=== PATIENT | female | born 1965 | race Caucasian/White ===

== ENCOUNTER → 2017-02-26 11:59 | Emergency (ER) | payer BC, OTHER ==
[~2017-02-26 11:59] MED LIST: Diazepam TAB(*) 2 MG PO ONE; Meclizine TAB* 12.5 MG PO ONE
[2017-02-26 13:08] LABS: Hematocrit 37 % (35-47); Hemoglobin 12.7 g/dl (12.0-16.0); Mean Corpuscular HGB Conc 34 g/dl (31-36); Mean Corpuscular Hemoglobin 32 pg (27-31); Mean Corpuscular Volume 93 fL (80-97); Mean Platelet Volume 8 um3 (7.4-10.4); Red Blood Count 4.03 10^6/ul (4.0-5.4); Red Cell Distribution Width 13 % (10.5-15); White Blood Count 7.8 10^3/ul (3.5-10.8)
[2017-02-26 13:23] LABS: Albumin 4.3 g/dL (3.2-5.2); BUN/Creatinine Ratio 12.5 (8-20); C Reactive Protein 5.81 mg/L (< 5.00); Calcium 9.6 mg/dL (8.6-10.3); EGFR African American 87.5 (>60); Magnesium 2.3 mg/dL (1.9-2.7); Potassium 4.2 mmol/L (3.5-5.0); Total Bilirubin 0.3 mg/dL (0.2-1.0); Total Protein 7.3 g/dL (6.4-8.9)
--- NOTE | 2017-02-26 13:28 | RAD ---
HISTORY: Dizziness COMPARISONS: None VIEWS: 2: Frontal and lateral views of the chest. FINDINGS: CARDIOMEDIASTINAL SILHOUETTE: The cardiomediastinal silhouette is normal. EDVIN: The edvin are normal. PLEURA: The costophrenic angles are sharp. No pleural abnormalities are noted. LUNG PARENCHYMA: The lungs are clear. ABDOMEN: The upper abdomen is clear. There is no subphrenic gas. BONES AND SOFT TISSUES: No bone or soft tissue abnormalities are noted. OTHER: None. IMPRESSION: NO ACTIVE CARDIOPULMONARY DISEASE.
[2017-02-26 13:55] LABS: TSH (Thyroid Stimulating Horm) 1.22 mcIU/mL (0.34-5.60)
--- NOTE | 2017-02-26 15:07 | ED ---
Jose Gauthier Benjamin, scribed for Dylan Alvarez MD on 02/26/17 at 1226 . Dizziness - HPI Summary HPI Summary: 51yo female c/o room spinning like dizziness since last week. Last Saturday, pt woke up dizzy and had left arm numbness, CP and neck pain. She also felt near-syncopal but denies LOC. Last Saturday, pt saw her PCP for her symptoms and had blood drawn and an EKG done. Pt was told that her sinus were red and swollen. Pt started steroids and anti-histamine subsequently, which helped initially but pt started feeling dizzy and near syncopal again since Saturday. Pt states that head movement and [id number] position changes triggers her dizziness. Denies CP, SOB, or nasuea. Pt also noted higher BP last week. Baseline BP for her is in 120s/80s. Pt states BP was in 160s/90s last week. Pt is an occasional drinker and a regular vape smoker. FHx of HTN, CAD, and CVA. - History Of Current Complaint Chief Complaint: EDSyncope Stated Complaint: NEAR SYNCOPE Time Seen by Provider: 02/26/17 12:03 Hx Obtained From: Patient, Family/Ring Sewer - friend Onset/Duration: Still Present Timing: Intermittent Episode Lasting Severity Initially: Moderate Severity Currently: Moderate Character: Room Spinning, Dizzy Aggravating Factor(s): Position Change, Change In Head Position Alleviating Factor(s): Rest, Lying Down Associated Signs And Symptoms: Negative: Nausea, SOB, Palpitations - Allergies/Home Medications Allergies/Adverse Reactions: Allergies Allergy/AdvReac Type Severity Reaction Status Date / Time Azithromycin Allergy Severe throat Verified 08/16/16 08:18 swelling Codeine Allergy Severe vomiting, Verified 03/04/15 09:18 headache PMH/Surg Hx/FS Hx/Imm Hx Endocrine/Hematology History: Reports: Hx Diabetes - resolved gestational 22 yrs ago Cardiovascular History: Denies: Hx Hypertension, Hx Pacemaker/ICD History: Denies: Hx Dialysis, Hx Renal Disease Sensory History: Denies: Hx Hearing Aid Psychiatric History: Denies: Hx Panic Disorder - Surgical History Surgery Procedure, Year, and Place: Uterine ablasion. tubal ligation. 2 lump removal from breast- begign. knee surgery left. hysterectomy Infectious Disease History: No Infectious Disease History: Denies: Traveled Outside the [place] in Last 30 Days - Social History Alcohol Use: Occasionally Substance Use Type: Reports: None Smoking Status (MU): Heavy Every Day Tobacco Smoker Amount Used/How Often: 1/2 PPD Review of Systems Constitutional: Negative Eyes: Negative ENT: Negative Cardiovascular: Negative Negative: Chest Pain Positive: Cough. Negative: Shortness Of Breath Gastrointestinal: Negative Negative: Nausea Genitourinary: Negative Musculoskeletal: Negative Skin: Negative Neurological: Other - dizziness Positive: Syncope - near syncopal Psychological: Normal All Other Systems Reviewed And Are Negative: Yes Physical Exam - Summary Physical Exam Summary: VITAL SIGNS: Reviewed. GENERAL: Patient is a well-developed and nourished female who is lying comfortable in the stretcher. Patient is not in any acute respiratory distress. HEAD AND FACE: No signs of trauma. No ecchymosis, hematomas or skull depressions. No sinus tenderness. EYES: PERRLA, EOMI x 2, No injected conjunctiva, no nystagmus. EARS: Hearing grossly intact. Ear canals and tympanic membranes are within normal limits. MOUTH: Oropharynx within normal limits. NECK: Supple, trachea is midline, no adenopathy, no JVD, no carotid bruit, no c- spine tenderness, neck with full ROM. CHEST: Symmetric, no tenderness at palpation LUNGS: Clear to auscultation bilaterally. No wheezing or crackles. CVS: Regular rate and rhythm, S1 and S2 present, no murmurs or gallops appreciated. ABDOMEN: Soft, non-tender. No signs of distention. No rebound no guarding, and no masses palpated. Bowel sounds are normal. EXTREMITIES: FROM in all major joints, no edema, no cyanosis or clubbing. NEURO: Alert and oriented x 3. No acute neurological deficits. Speech is normal and follows commands. SKIN: Dry and warm Triage Information Reviewed: Yes Vital Signs On Initial Exam: Initial Vitals Temp Pulse Resp BP Pulse Ox 98.4 F 60 11 127/80 97 02/26/17 12:04 02/26/17 12:04 02/26/17 12:04 02/26/17 12:04 02/26/17 12:04 Vital Signs Reviewed: Yes - [place] Coma Scale Coma Scale Total: 15 Diagnostics - Vital Signs Vital Signs Temp Pulse Resp BP Pulse Ox 02/26/17 12:04 98.4 F 60 11 127/80 97 - Laboratory Lab Results: Lab Results 02/26/17 02/26/17 02/26/17 Range/Units 12:50 12:50 12:50 WBC 7.8 (3.5-10.8) 10^3/ul RBC 4.03 (4.0-5.4) 10^6/ul Hgb 12.7 (12.0-16.0) g/dl Hct 37 (35-47) % MCV 93 (80-97) fL MCH 32 H (27-31) pg MCHC 34 (31-36) g/dl RDW 13 (10.5-15) % Plt Count 354 (150-450) 10^3/ul MPV 8 (7.4-10.4) um3 Neut % (Auto) 55.7 (38-83) % Lymph % (Auto) 34.3 (25-47) % [place] % (Auto) 7.5 (1-9) % Eos % (Auto) 1.9 (0-6) % Baso % (Auto) 0.6 (0-2) % Absolute Neuts (auto) 4.3 (1.5-7.7) 10^3/ul Absolute Lymphs (auto) 2.7 (1.0-4.8) 10^3/ul Absolute Monos (auto) 0.6 (0-0.8) 10^3/ul Absolute Eos (auto) 0.1 (0-0.6) 10^3/ul Absolute Basos (auto) 0 (0-0.2) 10^3/ul Absolute Nucleated RBC 0 10^3/ul Nucleated RBC % 0 Sodium 137 (133-145) mmol/L Potassium 4.2 (3.5-5.0) mmol/L Chloride 104 (101-111) mmol/L Carbon Dioxide 27 (22-32) mmol/L Anion Gap 6 (2-11) mmol/L BUN 11 (6-24) mg/dL Creatinine 0.88 (0.51-0.95) mg/dL Est GFR ( Amer) 87.5 (>60) Est GFR (Non-Af Amer) 68.0 (>60) BUN/Creatinine Ratio 12.5 (8-20) Glucose 100 (70-100) mg/dL Calcium 9.6 (8.6-10.3) mg/dL Magnesium 2.3 (1.9-2.7) mg/dL Total Bilirubin 0.30 (0.2-1.0) mg/dL AST 25 (13-39) U/L ALT 42 (7-52) U/L Alkaline Phosphatase 89 (34-104) U/L Total Creatine Kinase 66 (10-223) U/L Troponin I 0.00 (<0.04) ng/mL C-Reactive Protein 5.81 H (< 5.00) mg/L B-Natriuretic Peptide 19 ( - 100) pg/mL Total Protein 7.3 (6.4-8.9) g/dL Albumin 4.3 (3.2-5.2) g/dL Globulin 3.0 (2-4) g/dL Albumin/Globulin Ratio 1.4 (1-3) TSH 1.22 (0.34-5.60) mcIU/mL Result Diagrams: 02/26/17 12:50 02/26/17 12:50 Lab Statement: Any lab studies that have been ordered have been reviewed, and results considered in the medical decision making process. - Radiology CXR Xray Interpretation: No Acute Changes Radiology Interpretation Completed By: Radiologist - ED physician has reviewed this radiology report and agrees. Re-Evaluation - Re-Evaluation First Eval Re-Evaluation Time: 14:39 Comment: Reviewed labs and imaging results with the pt. Dizzy Course/Dx - Course Assessment/Plan: In the ED course an IV access was obtained. Patient was placed in a cardiac cath technician. Patient was started with IV fluids. She was given Antivert for Dizziness. Labs without any significant abnormality. Troponin #1 : 0.00. EKG shows a NSR w/o ST elevations. CXR impression: No acute pathology. After medications patients symptoms have improved. At this point I discussed all the findings and test results with the patient and patients parents. They were instructed to return to the emergency room immediately if any of the symptoms return or worsens. They understand and agree. Neurological exam before discharge: Patient is alert and oriented x 3. No acute neurological deficits. Patient vital signs are stable. Patient is to follow up with the roll mill operator in the next 2 3 days. They understand and agree. Plan of care was discussed with the patient and patient understands and agrees with the plan of care. All questions were answered at patient satisfaction. There were no further complaints or concerns. - Diagnoses Differential Diagnosis/HQI/PQRI: Anxiety, Benign Paroxysmal Positional Vertigo, Dysrhythmia, Labyrinthitis, Meniere's Disease, Vasovagal Reaction Provider Diagnoses: Vertigo Discharge - Discharge Plan Condition: Stable Disposition: HOME Prescriptions: Meclizine TAB* [Antivert 12.5 TAB*] 25 mg PO TID PRN #30 tab PRN Reason: Vertigo Patient Education Materials: Vertigo (ED) Referrals: Juan José PIÑA,Shantanu Velarde [Primary Care Provider] - The documentation as recorded by the Jose goodrich Benjamin accurately reflects the service I personally performed and the decisions made by Antonio powell Walter, MD.
[2017-02-26 15:19] VITALS: BP 113/78
== END | disposition home or self-care (01) ==
LOC: ED 11:59
DX: R42 Dizziness and giddiness (principal); F17.210 Nicotine dependence, cigarettes, uncomplicated
CPT/HCPCS: 36415; 71020; 80053; 82550; 83735; 83880; 84443; 84484; 85025; 86140; 93005; 99283; A9270-GY